=== PATIENT | female | born 1965 | race Caucasian/White ===

== ENCOUNTER 2018-02-16 02:38 | Emergency (ER) | payer MEDICAID ==
[~2018-02-16] VITALS: Ht 160 cm; Wt 65.8 kg
[~2018-02-16 02:38] MED LIST: ACET-3457 PO
[2018-02-16 02:41] VITALS: BP 133/77
[2018-02-16] MEDS ORDERED: NACL 0.9% 1,000 ML IV ONE (03:31)
[2018-02-16] MEDS ORDERED: ONDANSETRON 4 MG/2 ML VIAL IVP ONE (03:35)
[2018-02-16] MEDS ORDERED: MORPHINE SULFATE 4 MG/ML SYR IVP ONE (03:35)
[2018-02-16] MEDS ORDERED: KETOROLAC 30 MG/ML VIAL IVP ONE (04:00)
[2018-02-16 04:46] LABS: HEMOGLOBIN 13.2 g/dL (12.0-16.0); MEAN CORPUSCULAR HEMOGLOBIN 30 pg (27-31); MEAN CORPUSCULAR HGB CONC 34 g/dL (33-37); MEAN CORPUSCULAR VOLUME 88.2 fL (80-94); PLATELET COUNT (AUTO) 79 K/uL (140-450); RED BLOOD CELL COUNT(AUTO) 4.42 MIL/uL (4.20-5.40); RED CELL DISTRIBUTION WIDTH 13.1 % (11.6-13.7); WHITE BLOOD COUNT (AUTO) 10.7 K/uL (4.8-10.8)
[2018-02-16 05:10] LABS: ANION GAP 13.2 (8-16); CARBON DIOXIDE 28.4 mmol/L (21-32); POTASSIUM 3.6 mmol/L (3.5-5.1)
[2018-02-16 05:16] LABS: ALBUMIN 3.2 g/dL (3.4-5.0); TOTAL BILIRUBIN 1.4 mg/dL (0.0-1.0)
[2018-02-16 05:16] LABS: APPEARANCE,URINE CLOUDY (CLEAR); COLOR,URINE YELLOW (YELLOW)
[2018-02-16 05:17] LABS: BILIRUBIN,URINE NEGATIVE (NEGATIVE); BLOOD, URINE 3+ (NEGATIVE); LEUKOCYTE ESTERASE ,URINE 1+ (NEGATIVE); NITRITE, URINE NEGATIVE (NEGATIVE); UGLUCOSE NEGATIVE (NEGATIVE)
[2018-02-16 05:19] LABS: RBC,URINE 3-10 (FEW) /HPF (0-5); WBC,URINE 80-100 /HPF (0-5)
[2018-02-16 05:52] LABS: BASOPHILS % (MANUAL) 0 % (0-2); EOSINOPHILS % (MANUAL) 0 % (0-4); LYMPHOCYTES % (MANUAL) 6 % (20-46); MONOCYTES % (MANUAL) 9 % (5-12)
[2018-02-16 06:10] VITALS: BP 111/67
== END 2018-02-16 06:05 | disposition home or self-care (01) ==
LOC: MED 02:38
DX: R11.2 Nausea with vomiting, unspecified (principal); N39.0 Urinary tract infection, site not specified; F17.210 Nicotine dependence, cigarettes, uncomplicated; I10 Essential (primary) hypertension; Z85.41 Personal history of malignant neoplasm of cervix uteri; Z90.49 Acquired absence of other specified parts of digestive tract; Z88.0 Allergy status to penicillin
CPT/HCPCS: 36415; 80053; 81001; 81025; 83690; 85025; 87086; 96361; 96374; 99284; J2405; J7030; 87186; J1885; J2270

== ENCOUNTER 2018-04-16 17:38 | Emergency (ER) | payer MEDICAID ==
[~2018-04-16] VITALS: Ht 162.6 cm; Wt 64.4 kg
[2018-04-16 17:44] VITALS: BP 127/71
--- NOTE | 2018-04-16 18:00 | NUR ---
53/ F BIB SELF WITH SONS, C/O COLD SYMPTOMS FOR 2 MONTHS, PT. REPORTS COUGH, RHINNORHEA, CONJESTION, AND MIDSTERNAL CHEST WALL PAIN AGGRAVATED BY COUGH. PAIN IS 7/10 DECRIBES IT A SORENESS. DENIES SOB, N/V/D OR FEVER. PT. ADMITS TO SMOKING. AOX4, STEADY GAIT, SAFETY PRECUATIONS IN PLACE.
--- NOTE | 2018-04-16 18:10 | NUR ---
Patient being evaluated by physician at bedside.
[2018-04-16] MEDS ORDERED: methylPREDNISolone SS 125 MG/2 ML VIAL IM ONE (18:20)
[2018-04-16] MEDS ORDERED: ALBUTEROL SULFATE/IPRATROPIU 3 ML SOL IH ONE (18:20)
--- NOTE | 2018-04-16 18:46 | NUR ---
PATIENT REFUSED HHN TX. NO SOB OR DISTRESS NOTED. DR. ZUÑIGA INFORMED.
--- NOTE | 2018-04-16 19:08 | NUR ---
Patient discharged with v/s stable. Written and verbal after care instructions given and explained. Patient alert, oriented and verbalized understanding of instructions. Ambulatory with steady gait. All questions addressed prior to discharge. ID band removed. Patient advised to follow up with PMD. Rx of ALBUTEROL/PREDNISONE/PHENERGAN/ZYRTEC given. Patient educated on indication of medication including possible reaction and side effects. Opportunity to ask questions provided and answered.
[2018-04-16 19:09] VITALS: BP 128/78
== END 2018-04-16 19:09 | disposition home or self-care (01) ==
LOC: MED 17:38
DX: J20.9 Acute bronchitis, unspecified (principal); F17.200 Nicotine dependence, unspecified, uncomplicated; I10 Essential (primary) hypertension; Z88.0 Allergy status to penicillin; Z85.41 Personal history of malignant neoplasm of cervix uteri; Z79.899 Other long term (current) drug therapy
CPT/HCPCS: 96372; 99283; J2930; J7620

== ENCOUNTER 2018-05-25 14:49 | Emergency (ER) | payer MEDICAID ==
[~2018-05-25] VITALS: Ht 167.6 cm; Wt 78.0 kg
[2018-05-25 14:55] VITALS: BP 131/73
--- NOTE | 2018-05-25 15:11 | NUR ---
53/F bib self with c/o 12/02 non-provoked constant "sharp" right sided chest pain radiating to bl upper back x yesterday night. Patient also reports of intermittent productive cough x 6 months?. Patient denies any sob or palpations. RR are even and unlabored. Skin is warm/dry/color apprioriate for ethnicity. hx--patient denies rx--patient denies
--- NOTE | 2018-05-25 15:17 | NUR ---
Patient being evaluated by DR OMALLEY at bedside.
[2018-05-25 15:24] VITALS: BP 123/69
--- NOTE | 2018-05-25 15:24 | NUR ---
Patient discharged with v/s stable. Written and verbal after care instructions given and explained. Patient alert, oriented and verbalized understanding of instructions. Ambulatory with steady gait. All questions addressed prior to discharge. ID band removed. Patient advised to follow up with PMD. Rx of MOTRIN, CIPRO& PREDNISONE given. Patient educated on indication of medication including possible reaction and side effects. Opportunity to ask questions provided and answered.
== END 2018-05-25 15:34 | disposition home or self-care (01) ==
LOC: MED 14:49
DX: R07.89 Other chest pain (principal); R05 Cough; N39.0 Urinary tract infection, site not specified; I10 Essential (primary) hypertension; F17.200 Nicotine dependence, unspecified, uncomplicated; Z90.49 Acquired absence of other specified parts of digestive tract; Z79.899 Other long term (current) drug therapy; Z88.0 Allergy status to penicillin; Z85.41 Personal history of malignant neoplasm of cervix uteri
CPT/HCPCS: 81002; 81025; 93005; 99283

== ENCOUNTER 2018-12-24 18:10 | Emergency (ER) | payer MEDICAID ==
[~2018-12-24] VITALS: Ht 160 cm; Wt 64.4 kg
--- NOTE | 2018-12-24 18:20 | NUR ---
Patient ambulated to bed 5
[2018-12-24 18:22] VITALS: BP 141/80
--- NOTE | 2018-12-24 18:40 | NUR ---
C/O NON-RADIATING LEFT ANKLE & HEEL PAIN 12/02 & DULL STARTING THIS MORNING WHEN SHE WOKE UP. PT STATES SHE INJURED THE SAME FOOT APPROX. 1 YEAR AGO, AND HAS HAD INTERMITTENT PAIN IN THAT FOOT SINCE THEN. PT DENIES RECENT INJURY/TRAUMA TO THAT FOOT. M/S FUNCTION INTACT, DENIES NUMBNESS/TINGLING, +2 PEDAL PULSE TO L FOOT. PT IS ABLE TO AMBULATE, BUT STATES THAT IT HURTS ALOT.
[2018-12-24] MEDS ORDERED: HYDROcodone/APAP 5/325 MG 1 TAB TAB PO ONE (19:35)
--- NOTE | 2018-12-24 19:48 | NUR ---
PLACED ICE PACK UNDERNEATH RIGHT ANKLE. NO SWELLING NOTED.
--- NOTE | 2018-12-24 19:52 | NUR ---
PT. REFUSED NORCO 5/325 MG 1 TAB. NOTIFIED
--- NOTE | 2018-12-24 20:30 | NUR ---
CORNEL WRAP APPLIED TO PT R ANKLE. +CSM
[2018-12-24 20:52] VITALS: BP 114/68
== END 2018-12-24 20:52 | disposition home or self-care (01) ==
LOC: MED 18:10
DX: M25.572 Pain in left ankle and joints of left foot (principal); F17.210 Nicotine dependence, cigarettes, uncomplicated; I10 Essential (primary) hypertension; Z71.6 Tobacco abuse counseling; Z90.49 Acquired absence of other specified parts of digestive tract; Z98.890 Other specified postprocedural states; Z79.899 Other long term (current) drug therapy; Z88.0 Allergy status to penicillin; Z85.41 Personal history of malignant neoplasm of cervix uteri
CPT/HCPCS: 73610; 73630; 99283; Q0092

== ENCOUNTER 2020-07-04 19:59 | Emergency (ER) | payer MEDICAID ==
[~2020-07-04] VITALS: Ht 160 cm; Wt 63.5 kg
[2020-07-04 20:22] VITALS: BP 126/78
--- NOTE | 2020-07-04 20:44 | NUR ---
ERMD EVALAUTING PATIENT IN TENT.
[2020-07-04] MEDS ORDERED: NACL 0.9% 2,000 ML IV ONE (20:50)
[2020-07-04] MEDS ORDERED: ALBUTEROL 0.083% 2.5 MG/3 ML NEBU INH ONE (20:50)
[2020-07-04] MEDS ORDERED: methylPREDNISolone SS 125 MG in WATER STERILE 2 ML IV ONE (20:50)
--- NOTE | 2020-07-04 21:03 | NUR ---
PATIENT NO LONGER IN TENT. LAB UNABLE TO DRAW LABS AND RT UNABLE TO GIVE BREATHING TREATMENT.
--- NOTE | 2020-07-04 21:30 | NUR ---
PATIENT RETURNED TO TENT. PATIENT REFUSING MEDICATIONS, PATIENT REFUSING BREATHING TREATMENT.
--- NOTE | 2020-07-04 21:45 | NUR ---
PATIENT REFUSED COVID TEST, "I GOT ONE 2 DAYS AGO AND IT WAS NEGATIVE."
--- NOTE | 2020-07-04 22:03 | NUR ---
PATIENT STATES, "I JUST WANT MY XRAY RESULTS AND A COVID TEST. I DON'T WANT ANY MEDICATIONS HERE I JUST WANT TO BE GIVEN MEDICATIONS I CAN TAKE AT HOME."
[2020-07-04] MEDS ORDERED: PRED10TA5 PO (22:28)
--- NOTE | 2020-07-04 22:29 | NUR ---
PER PATIENT, "NEVERMIND ABOUT THE COVID TEST, CAN I JUST HAVE MY MEDICATIONS AND XRAY RESULTS."
[2020-07-04 22:30] VITALS: BP 126/78
== END 2020-07-04 22:30 | disposition home or self-care (01) ==
LOC: MED 19:59
DX: J44.1 Chronic obstructive pulmonary disease with (acute) exacerbation (principal); F17.210 Nicotine dependence, cigarettes, uncomplicated; I10 Essential (primary) hypertension; Z88.0 Allergy status to penicillin; Z90.49 Acquired absence of other specified parts of digestive tract; Z71.6 Tobacco abuse counseling
CPT/HCPCS: 71045; 99283; J7613

== ENCOUNTER 2020-11-29 18:30 | Emergency (ER) | payer MEDICAID, SELFPAY ==
[~2020-11-29] VITALS: Ht 162.6 cm; Wt 59.0 kg
[~2020-11-29 18:30] MED LIST changes: +PRED10TA5 PO
[2020-11-29 18:47] VITALS: BP 111/74
--- NOTE | 2020-11-29 19:00 | NUR ---
C/O COUGH, 9/10 ABDOMINAL PAIN, FEVER , KINNEY X 3 DAYS. PMH: DENIES
[2020-11-29] MEDS ORDERED: IBUP-2213 PO (19:19)
[2020-11-29] MEDS ORDERED: PHEN177S23 PO (19:19)
[2020-11-29] MEDS ORDERED: PROM118S5 PO (19:19)
--- NOTE | 2020-11-29 20:05 | NUR ---
Patient discharged with v/s stable. Written and verbal after care instructions given and explained. Patient alert, oriented and verbalized understanding of instructions. Ambulatory with steady gait. All questions addressed prior to discharge. ID band removed. Patient advised to follow up with PMD. Rx of IBUPROFRN, IMODIUM, PROMETHAZINE given. Patient educated on indication of medication including possible reaction and side effects. Opportunity to ask questions provided and answered.
== END 2020-11-29 20:05 | disposition home or self-care (01) ==
LOC: MED 18:30
DX: J02.9 Acute pharyngitis, unspecified (principal); Z20.822 Contact with and (suspected) exposure to COVID-19; R11.0 Nausea; R05 Cough; Z88.0 Allergy status to penicillin; Z85.41 Personal history of malignant neoplasm of cervix uteri; Z98.890 Other specified postprocedural states; Z79.899 Other long term (current) drug therapy
CPT/HCPCS: 99283; U0003

== ENCOUNTER 2020-12-07 15:57 | Emergency (ER) | payer MEDICAID, SELFPAY ==
[~2020-12-07] VITALS: Ht 162.6 cm; Wt 62.6 kg
[~2020-12-07 15:57] MED LIST changes: +IBUP-2213 PO; +PHEN177S23 PO; +PROM118S5 PO
[2020-12-07 16:04] VITALS: BP 140/72
--- NOTE | 2020-12-07 16:08 | NUR ---
PT TO AWAIT IN LOBBY
--- NOTE | 2020-12-07 16:52 | NUR ---
PT AMBULATED TO BED
--- NOTE | 2020-12-07 17:00 | NUR ---
55 y/o F BIB self from home with c/c anxiety, blurry vision, and "cloudiness." Patient A&Ox4, ambulatory, reports trouble sleeping last night. Patient reports today at 1330, she stepped outside to see her birds and began experiencing anxiety, palpitations and states "my head just feels cloudy." Patient states this has never happened to her before. Patient denies any recent drug use or alcohol, denies nausea, vomiting, diarrhea, dizziness, headache, fever, chills, SOB, chest pain, abdominal pain, recent trauma/fall/injury. VSS; respirations even/unlabored. Bed locked in lowest position, side rails x 1. 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
[2020-12-07] MEDS ORDERED: ASPIRIN 325 MG TAB PO ONE (17:50)
--- NOTE | 2020-12-07 17:55 | NUR ---
Pt ambulated to restroom with steady/even gait, gown provided.
--- NOTE | 2020-12-07 17:55 | NUR ---
EMT at bedside for EKG
--- NOTE | 2020-12-07 18:00 | NUR ---
EKG PERFORMED AT BEDSIDE. EKG READS SINUS RHYTHM @ 67
--- NOTE | 2020-12-07 18:00 | NUR ---
Lab at bedside
[2020-12-07 18:17] LABS: BASOPHILS % (AUTO) 0.6 % (0.0-2.0); EOSINOPHILS # (AUTO) 0.1 K/uL (0-0.4); EOSINOPHILS % (AUTO) 1.3 % (0.0-4.0); HEMATOCRIT 41.2 % (36-48); HEMOGLOBIN 14.1 g/dL (12.0-16.0); LYMPHOCYTES % (AUTO) 13.2 % (20.5-51.1); MEAN CORPUSCULAR HEMOGLOBIN 30 pg (27-31); MEAN CORPUSCULAR HGB CONC 34 g/dL (33-37); MONOCYTES # (AUTO) 0.4 K/uL (0.8-1.0); MONOCYTES % (AUTO) 5.2 % (1.7-9.3); NEUTROPHILS # (AUTO) 6.1 K/uL (1.8-7.7); NEUTROPHILS % (AUTO) 79.7 % (42.2-75.2); PLATELET COUNT (AUTO) 110 K/uL (140-450); RED BLOOD CELL COUNT(AUTO) 4.63 MIL/uL (4.20-5.40); RED CELL DISTRIBUTION WIDTH 12.9 % (11.6-13.7); WHITE BLOOD COUNT (AUTO) 7.6 K/uL (4.8-10.8)
[2020-12-07 18:58] LABS: ALBUMIN 4.2 g/dL (3.4-5.0); ANION GAP 11.3 (8-16); CARBON DIOXIDE 29.2 mmol/L (21-32); CREATININE 0.9 mg/dL (0.6-1.3); MAGNESIUM 2.2 mg/dL (1.8-2.4); POTASSIUM 4.5 mmol/L (3.5-5.1); TOTAL BILIRUBIN 0.6 mg/dL (0.0-1.0)
--- NOTE | 2020-12-07 19:23 | NUR ---
Report and transfer of care endorsed to AUBREY Cormier.
[2020-12-07 19:38] VITALS: BP 103/53
--- NOTE | 2020-12-07 19:38 | NUR ---
assumed care of pt. pt awake alertx3 denies pain c/o anxious feeling and being hungry. on youth nutritional monitor NSR. Skin warm dry and intact. awaiting disposition by .
--- NOTE | 2020-12-07 20:00 | NUR ---
DISCHARGED HOME WITH AFTER CARE INSTRUCTIONS. PT AWAKE ALERTX3 AMBULATORY STEADY GAIT V.S.S
== END 2020-12-07 20:00 | disposition home or self-care (01) ==
LOC: MED 15:57
DX: R00.2 Palpitations (principal); R07.9 Chest pain, unspecified; F41.9 Anxiety disorder, unspecified; Z88.0 Allergy status to penicillin; Z79.899 Other long term (current) drug therapy; Z85.41 Personal history of malignant neoplasm of cervix uteri
CPT/HCPCS: 36415; 71045; 80053; 83735; 84484; 85025; 93005; 99285

== ENCOUNTER 2021-04-04 20:40 | Emergency (ER) | payer MEDICAID, SELFPAY ==
[~2021-04-04] VITALS: Ht 162.6 cm; Wt 64.4 kg
[2021-04-04 21:01] VITALS: BP 128/78
--- NOTE | 2021-04-04 21:01 | NUR ---
TO BED AMBULATORY
--- NOTE | 2021-04-04 21:14 | NUR ---
Dr. Cuba examining patient.
--- NOTE | 2021-04-04 21:18 | NUR ---
patient ambulatory to the bathroom.
[2021-04-04] MEDS ORDERED: IBUP-2213 PO (21:22)
--- NOTE | 2021-04-04 21:26 | NUR ---
seen by CHRISTIANOD no nursing intervention needed for patient
[2021-04-04 21:28] VITALS: BP 128/78
== END 2021-04-04 21:26 | disposition home or self-care (01) ==
LOC: MED 20:40
DX: S09.90XA Unspecified injury of head, initial encounter (principal); R42 Dizziness and giddiness; F17.200 Nicotine dependence, unspecified, uncomplicated; Z90.49 Acquired absence of other specified parts of digestive tract; Z88.0 Allergy status to penicillin; Z79.899 Other long term (current) drug therapy; Z85.41 Personal history of malignant neoplasm of cervix uteri
CPT/HCPCS: 99282

== ENCOUNTER 2021-05-22 18:32 | Emergency (ER) | payer MEDICAID ==
[~2021-05-22] VITALS: Ht 162.6 cm; Wt 64.4 kg
[2021-05-22 19:33] VITALS: BP 113/74
--- NOTE | 2021-05-22 19:36 | NUR ---
PT IN TENT.
[2021-05-22] MEDS ORDERED: NAPR-1704 PO (19:59)
[2021-05-22] MEDS ORDERED: BENZ100C6 PO (19:59)
[2021-05-22] MEDS ORDERED: ACETAMINOPHEN EXTRA STRENGTH 500 MG TAB PO ONE (20:10)
[2021-05-22 20:30] VITALS: BP 113/74
--- NOTE | 2021-05-22 20:30 | NUR ---
Patient discharged with v/s stable. Written and verbal after care instructions given and explained. Patient alert, oriented and verbalized understanding of instructions. Ambulatory with steady gait. All questions addressed prior to discharge. ID band removed. Patient advised to follow up with PMD. Rx of BENZONATATE, NAPROSYN given. Patient educated on indication of medication including possible reaction and side effects. Opportunity to ask questions provided and answered.
== END 2021-05-22 20:30 | disposition home or self-care (01) ==
LOC: MED 18:32
DX: U07.1 COVID-19 (principal); Z88.0 Allergy status to penicillin
CPT/HCPCS: 99283; U0003

== ENCOUNTER 2021-10-06 16:00 | Emergency (ER) | payer MEDICAID ==
[~2021-10-06] VITALS: Ht 160 cm; Wt 64.4 kg
[~2021-10-06 16:00] MED LIST changes: +BENZ100C6 PO; +NAPR-1704 PO
[2021-10-06 16:18] VITALS: BP 154/85
--- NOTE | 2021-10-06 16:24 | NUR ---
PTAMB TO BED 8.
[2021-10-06] MEDS ORDERED: METOCLOPRAMIDE 10 MG/2 ML INJ VIAL IVP ONE (16:25)
[2021-10-06] MEDS ORDERED: NACL 0.9% 1,000 ML IV ONE (16:25)
[2021-10-06] MEDS ORDERED: diphenhydrAMINE 50 MG/ML VIAL IVP ONE (16:25)
--- NOTE | 2021-10-06 16:30 | NUR ---
56YR OLD FEMALE BIB SELF C/O RIGHT SIDED WEAKNESS . DENIES CP SOB. DENIES ANY PAIN. RIGHT SIDED WEAKNESS SINCE SAT GOT WORSE TO DAY. PT A&OX4. NO DISTRESS NOTED. NKDA NO MED HX
[2021-10-06 17:04] LABS: BASOPHILS # (AUTO) 0.1 K/uL (0.00-0.22); BASOPHILS % (AUTO) 1.8 % (0.0-2.0); EOSINOPHILS # (AUTO) 0.2 K/uL (0-0.4); EOSINOPHILS % (AUTO) 4.2 % (0.0-4.0); HEMOGLOBIN 14.4 g/dL (12.0-16.0); LYMPHOCYTES # (AUTO) 1.4 K/uL (2.5-16.5); LYMPHOCYTES % (AUTO) 26.5 % (20.5-51.1); MEAN CORPUSCULAR HEMOGLOBIN 29 pg (27-31); MEAN CORPUSCULAR HGB CONC 34 g/dL (33-37); MEAN CORPUSCULAR VOLUME 87.5 fL (80-94); MONOCYTES # (AUTO) 0.3 K/uL (0.8-1.0); MONOCYTES % (AUTO) 5.5 % (1.7-9.3); NEUTROPHILS # (AUTO) 3.3 K/uL (1.8-7.7); PLATELET COUNT (AUTO) 108 K/uL (140-450); RED BLOOD CELL COUNT(AUTO) 4.91 MIL/uL (4.20-5.40); RED CELL DISTRIBUTION WIDTH 13.1 % (11.6-13.7); WHITE BLOOD COUNT (AUTO) 5.3 K/uL (4.8-10.8)
--- NOTE | 2021-10-06 17:20 | NUR ---
C/O DROOPING RIGHT EYELID, HEADACHE, RIGHT ARM, R LEG WEAKNESS X STARTED AT 11 AM TODAY. BLOOD SUGAR 142 AT THIS TIME.PMH: DENIES. DENIES N/V/D; SKIN IS PINK/WARM/DRY; AAOX4 WITH EVEN AND STEADY GAIT; LUNGS CLEAR BL; HR EVEN AND REGULAR; PT DENIES ANY FEVER, CP, SOB, OR COUGH AT THIS TIME; PATIENT STATES PAIN OF 6/10 AT THIS TIME. PATIENT POSITIONED FOR COMFORT; HOB ELEVATED; BEDRAILS UP X1; BED DOWN. ER MD MADE AWARE OF PT STATUS.
[2021-10-06 17:21] LABS: ALBUMIN 3.9 g/dL (3.4-5.0); ANION GAP 11.4 (8-16); CARBON DIOXIDE 27.5 mmol/L (21-32); CHLORIDE 103 mmol/L (98-107); CREATININE 0.9 mg/dL (0.6-1.3); GFR ARICAN-AMERICAN 83 mL/min (>90); GLUCOSE 107 mg/dL (74-106); POTASSIUM 3.9 mmol/L (3.5-5.1); SODIUM SERUM 138 mmol/L (136-145); UREA NITROGEN, BLOOD 14 mg/dL (7-18)
[2021-10-06 17:46] LABS: ASPARTATE AMINOTRANSFERASE 22 U/L (15-37); TOTAL BILIRUBIN 0.7 mg/dL (0.0-1.0)
[2021-10-06] MEDS ORDERED: IBUP-2213 PO (17:56)
--- NOTE | 2021-10-06 17:56 | NUR ---
PT HAS 22G IV CATH IN R HAND
--- NOTE | 2021-10-06 18:03 | NUR ---
ER DOC AT BEDSIDE
[2021-10-06 18:13] VITALS: BP 112/60
== END 2021-10-06 18:12 | disposition home or self-care (01) ==
LOC: MED 16:00
DX: R51.9 Headache, unspecified (principal); R53.1 Weakness; M79.651 Pain in right thigh; F17.210 Nicotine dependence, cigarettes, uncomplicated; Z88.0 Allergy status to penicillin; Z79.899 Other long term (current) drug therapy; Z85.41 Personal history of malignant neoplasm of cervix uteri; Z71.6 Tobacco abuse counseling
CPT/HCPCS: 36415; 70450; 80053; 84484; 85025; 93005; 96360; 99285; J2765; J7030; J1200

== ENCOUNTER 2023-03-17 14:51 | Emergency (ER) | payer MEDICAID ==
[~2023-03-17] VITALS: Ht 160 cm; Wt 64.4 kg
[2023-03-17 15:09] VITALS: BP 118/76; PULSE 77; RESP 15; TEMP 97.8; O2SAT 96
[2023-03-17] MEDS ORDERED: NACL 0.9% 1,000 ML IV ONE (15:35)
[2023-03-17] MEDS ORDERED: METOCLOPRAMIDE 10 MG/2 ML INJ VIAL IVP ONE (15:35)
[2023-03-17] MEDS ORDERED: diphenhydrAMINE 50 MG/ML VIAL IVP ONE (15:35)
[2023-03-17] MEDS ORDERED: KETOROLAC 30 MG/ML VIAL IVP ONE (15:35)
[2023-03-17] MEDS ORDERED: ACETAMINOPHEN 325 MG TAB PO ONE (15:35)
[2023-03-17] MEDS ORDERED: KETOROLAC 30 MG/ML VIAL IM ONE (16:25)
[2023-03-17] MEDS ORDERED: METOCLOPRAMIDE 10 MG TAB PO ONE (16:25)
[2023-03-17 16:48] VITALS: O2SAT 96
[2023-03-17 16:55] LABS: BASOPHILS # (AUTO) 0.1 K/uL (0.00-0.22); BASOPHILS % (AUTO) 0.8 % (0.0-2.0); EOSINOPHILS # (AUTO) 0.3 K/uL (0-0.4); EOSINOPHILS % (AUTO) 3.6 % (0.0-4.0); HEMATOCRIT 42.6 % (36-48); HEMOGLOBIN 14.4 g/dL (12.0-16.0); LYMPHOCYTES # (AUTO) 1.6 K/uL (2.5-16.5); LYMPHOCYTES % (AUTO) 22.7 % (20.5-51.1); MEAN CORPUSCULAR HEMOGLOBIN 30 pg (27-31); MEAN CORPUSCULAR HGB CONC 34 g/dL (33-37); MEAN CORPUSCULAR VOLUME 87.9 fL (80-94); MONOCYTES # (AUTO) 0.4 K/uL (0.8-1.0); MONOCYTES % (AUTO) 5.2 % (1.7-9.3); NEUTROPHILS # (AUTO) 4.9 K/uL (1.8-7.7); NEUTROPHILS % (AUTO) 67.7 % (42.2-75.2); PLATELET COUNT (AUTO) 143 K/uL (140-450); RED BLOOD CELL COUNT(AUTO) 4.85 MIL/uL (4.20-5.40); RED CELL DISTRIBUTION WIDTH 13.1 % (11.6-13.7); WHITE BLOOD COUNT (AUTO) 7.2 K/uL (4.8-10.8)
[2023-03-17 17:39] LABS: ALANINE AMINOTRANSFERASE 23 U/L (12-78); ALBUMIN 3.9 g/dL (3.4-5.0); ALKALINE PHOSPHATASE 101 U/L (50-136); ASPARTATE AMINOTRANSFERASE 21 U/L (15-37); CARBON DIOXIDE 26.2 mmol/L (21-32); CHLORIDE 104 mmol/L (98-107); CREATININE 1.1 mg/dL (0.6-1.3); GFR ARICAN-AMERICAN 66 mL/min (>90); GFR NON ARICAN-AMERICAN 54 mL/min (>90); GLUCOSE 98 mg/dL (74-106); POTASSIUM 4.2 mmol/L (3.5-5.1); SODIUM SERUM 139 mmol/L (136-145); TOTAL BILIRUBIN 0.5 mg/dL (0.0-1.0); TOTAL PROTEIN, SERUM 7.7 g/dL (6.4-8.2); UREA NITROGEN, BLOOD 15 mg/dL (7-18)
[2023-03-17] MEDS ORDERED: ATA25 PO (17:47)
[2023-03-17 17:59] VITALS: BP 118/76; PULSE 77; RESP 15; TEMP 97.8; O2SAT 96
== END 2023-03-17 17:38 | disposition home or self-care (01) ==
LOC: MED 14:51
DX: R51.9 Headache, unspecified (principal); R06.02 Shortness of breath; Z88.0 Allergy status to penicillin; Z79.899 Other long term (current) drug therapy
CPT/HCPCS: 36415; 70450; 71045; 80053; 84484; 85025; 93005; 99285; J1200; J1885; J2765; J8597; Q0163